=== PATIENT | female | born 1970 | race Caucasian/White ===

== ENCOUNTER → 2016-07-21 | Outpatient (CLI) | payer OTHER | LOC: RAD 09:18 | DX: M54.6 Pain in thoracic spine (principal) | CPT/HCPCS: 72072 ==

== ENCOUNTER 2016-08-28 18:45 | Emergency (ER) | payer OTHER ==
[2016-08-28 19:38] LABS: HEMOGLOBIN 14.6 gm/dl (12.3-15.3); RED BLOOD COUNT 4.57 M/UL (4.00-5.10); WHITE BLOOD COUNT 7.3 K/UL (4.5-11.0)
[2016-08-28 19:59] LABS: BUN/CREATININE RATIO 20 (0-10)
== END 2016-08-28 23:44 | disposition home or self-care (01) ==
LOC: ER1 18:45
PROVIDERS: Emergency Medicine
DX: J20.9 Acute bronchitis, unspecified (principal); E11.9 Type 2 diabetes mellitus without complications; I10 Essential (primary) hypertension; E78.00 Pure hypercholesterolemia, unspecified; F17.200 Nicotine dependence, unspecified, uncomplicated
CPT/HCPCS: 36415; 71020; 80053; 81001; 83605; 83690; 83880; 84484; 85025; 87040; 87086; 93005; 94640; 94664; 96361; 96374; 99285; J2930

== ENCOUNTER → 2016-08-31 | Outpatient (CLI) | payer OTHER | LOC: RAD 15:40 | DX: J40 Bronchitis, not specified as acute or chronic (principal); E11.9 Type 2 diabetes mellitus without complications; I10 Essential (primary) hypertension; E78.5 Hyperlipidemia, unspecified; E78.1 Pure hyperglyceridemia; I83.91 Asymptomatic varicose veins of right lower extremity; B35.1 Tinea unguium | CPT/HCPCS: 71020 ==

== ENCOUNTER → 2020-12-28 | Outpatient (CLI) | payer MEDICARE, OTHER ==
[~2020-12-28] MED LIST: BACLOFEN20 MG PO; BASAGLAR K100 UNIT/1 SQ; CETIRIZINE HCL10 MG PO; ECOTRIN81 MG PO; ESTRADIOL1 EAC1 TD; GABAPENTIN800 MG PO; GLUCOPHAGE1000 MG PO; HUMALOG100 UNIT/3 SQ; IBUPROFEN600 MG PO; KLONOPIN TAB 00.5 MG PO; LIPITOR TAB 2020 MG PO; LISINOPRIL40 MG PO; LOVAZA1 GM PO; LUVOX TAB 100100 MG PO; NORCO 10-325 T1 EACH PO; PHENERGAN 25 MG25 M1 PO; PROTONIX40 MG PO; TENORMIN 50 MG50 MG PO; TRICOR145 MG PO; VENTOLIN HFA 66.7 GM INH; ZANTAC150 MG PO; ZOFRAN4 MG PO
== END ==
LOC: KOH-I 11-30 13:00
DX: G95.9 Disease of spinal cord, unspecified (principal); W19.XXXD Unspecified fall, subsequent encounter; Q07.00 Arnold-Chiari syndrome without spina bifida or hydrocephalus; K21.9 Gastro-esophageal reflux disease without esophagitis; I10 Essential (primary) hypertension; E78.5 Hyperlipidemia, unspecified; F17.210 Nicotine dependence, cigarettes, uncomplicated
CPT/HCPCS: 72141

== ENCOUNTER 2021-04-14 21:10 | Emergency (ER) | payer MEDICARE, OTHER ==
[2021-04-14 22:02] LABS: HEMOGLOBIN 16.9 gm/dl (12.3-15.3); RED BLOOD COUNT 5.46 M/UL (4.00-5.10); WHITE BLOOD COUNT 10.5 K/UL (4.5-11.0)
[2021-04-14 22:23] LABS: BUN/CREATININE RATIO 24 (0-10)
== END 2021-04-15 01:15 | disposition short-term general hospital (02) ==
LOC: ER1 21:10
PROVIDERS: Family Medicine
DX: S02.612A Fracture of condylar process of left mandible, initial encounter for closed fracture (principal); S02.611A Fracture of condylar process of right mandible, initial encounter for closed fracture; S03.01XA Dislocation of jaw, right side, initial encounter; S01.81XA Laceration without foreign body of other part of head, initial encounter; S01.511A Laceration without foreign body of lip, initial encounter; E11.65 Type 2 diabetes mellitus with hyperglycemia; M54.2 Cervicalgia; M54.9 Dorsalgia, unspecified; Z23 Encounter for immunization; G89.29 Other chronic pain; Z20.822 Contact with and (suspected) exposure to COVID-19; F11.20 Opioid dependence, uncomplicated; I10 Essential (primary) hypertension; Z79.4 Long term (current) use of insulin; Y92.009 Unspecified place in unspecified non-institutional (private) residence as the place of occurrence of the external cause; W01.0XXA Fall on same level from slipping, tripping and stumbling without subsequent striking against object, initial encounter
CPT/HCPCS: 12011; 70450; 70486; 71260; 72125; 80053; 82550; 82553; 83874; 84484; 85025; 90471; 90715; 93005; 96374; 96375; 96376; 99285; J2270; J2405; Q9967; U0002

== ENCOUNTER 2021-07-09 22:23 | Inpatient (IN) | payer MEDICARE, OTHER ==
[~2021-07-09] VITALS: Ht 175.3 cm; Wt 81.6 kg
[~2021-07-09 22:23] MED LIST changes: -ESTRADIOL1 EAC1 TD; +ESTRADIOL1 EACH TD; -LUVOX TAB 100100 MG PO
[2021-07-10 00:42] LABS: HEMOGLOBIN 15.9 gm/dl (12.3-15.3); RED BLOOD COUNT 5.05 M/UL (4.00-5.10); WHITE BLOOD COUNT 10.2 K/UL (4.5-11.0)
[2021-07-10 01:09] LABS: BUN/CREATININE RATIO 34 (0-10)
[2021-07-10] MEDS ORDERED: HUMALOG100 UNIT/3 SC (08:48)
[2021-07-10] MEDS ORDERED: TRESIBA FL100 UNIT/1 SQ (08:49)
[2021-07-10] MEDS ORDERED: PERCOCET 5/325 T1 EA PO (08:49)
[2021-07-10] MEDS ORDERED: XANAX0.5 MG PO (08:51)
[2021-07-10] MEDS ORDERED: IBU800 MG PO (08:51)
[2021-07-10] MEDS ORDERED: MINIPRESS CAP 11 MG PO (08:53)
[2021-07-10] MEDS ORDERED: TIZANIDINE HCL4 MG PO (08:54)
[2021-07-10] MEDS ORDERED: LUVOX TAB 100100 MG PO (12:30)
[2021-07-10] MEDS ORDERED: CRESTOR40 MG PO (12:34)
[2021-07-10] MEDS ORDERED: FLONASE 0.05% N16 GM (12:35)
[2021-07-10] MEDS ORDERED: VASCEPA1 GM PO (12:35)
[2021-07-10] MEDS ORDERED: PROGESTERONE200 MG PO (12:36)
[2021-07-10] MEDS ORDERED: LIDOCAINE1 EAC1 TP (12:36)
[2021-07-11 03:15] LABS: HEMOGLOBIN 15.2 gm/dl (12.3-15.3); RED BLOOD COUNT 4.94 M/UL (4.00-5.10)
[2021-07-11 03:21] LABS: WHITE BLOOD COUNT 6.7 K/UL (4.5-11.0)
[2021-07-11 04:02] LABS: BUN/CREATININE RATIO 42 (0-10)
[2021-07-12 08:58] LABS: WHITE BLOOD COUNT 7.9 K/UL (4.5-11.0)
[2021-07-12 09:05] LABS: RED BLOOD COUNT 5.46 M/UL (4.00-5.10)
[2021-07-12 09:30] LABS: BUN/CREATININE RATIO 29 (0-10)
[2021-07-13 06:44] LABS: HEMOGLOBIN 17.4 gm/dl (12.3-15.3); RED BLOOD COUNT 5.52 M/UL (4.00-5.10); WHITE BLOOD COUNT 9.8 K/UL (4.5-11.0)
[2021-07-13 07:24] LABS: BUN/CREATININE RATIO 40 (0-10)
[2021-07-13] MEDS ORDERED: LEVOFLOXACIN500 MG PO (08:15)
[2021-07-13] MEDS ORDERED: AMLODIPINE BESYL5 MG PO (08:15)
--- NOTE | 2021-07-13 11:09 | NUR ---
URINE CULTURE ALREADY COMPLETE, PATIENT'S BLOOD PRESSURE 161/82 SO WILL D/C PER DR STILL'S REQUEST TO COMPLETE D/C ONCE SBP LESS THAN 170.
--- NOTE | 2021-07-13 14:55 | NUR ---
REPORT GIVEN TO BENNY WEI AT [facility].
== END 2021-07-13 13:20 | disposition home health service (06) | DRG 690 ==
LOC: ER1 22:23 → MED SURG 4 07-10 05:51 → CDU 07-10 05:51 → PROG CARE 07-10 05:51 → CDU 07-10 05:51 → PROG CARE 07-10 08:33 → MED SURG 4 07-11 23:35
PROVIDERS: Internal Medicine; Physician Assistant Medical; ADMIT Internal Medicine
PROC: B24BZZZ Ultrasonography of Heart with Aorta (ICD-10-PCS; principal; 2021-07-11)
DX: N39.0 Urinary tract infection, site not specified (principal); I95.1 Orthostatic hypotension; R29.6 Repeated falls; E78.5 Hyperlipidemia, unspecified; Z20.822 Contact with and (suspected) exposure to COVID-19; I10 Essential (primary) hypertension; I08.1 Rheumatic disorders of both mitral and tricuspid valves; I27.20 Pulmonary hypertension, unspecified; G89.29 Other chronic pain; I11.0 Hypertensive heart disease with heart failure; F41.9 Anxiety disorder, unspecified; J44.9 Chronic obstructive pulmonary disease, unspecified; D69.6 Thrombocytopenia, unspecified; E11.9 Type 2 diabetes mellitus without complications; Z79.4 Long term (current) use of insulin; Z98.890 Other specified postprocedural states
CPT/HCPCS: ECHO; 36415; 70450; 71045; 80048; 80053; 81001; 82533; 82550; 82553; 82962; 83735; 84484; 85025; 85027; 93005; 93306; 94640; 94664; 94760; 96374; 96375; 97116-GP-CQ; 97162; 97165; 97530; 99285; G0378; J0360; J0696; J1650; J2405; U0002

== ENCOUNTER 2021-07-20 17:12 | Emergency (ER) | payer MEDICARE, OTHER ==
[~2021-07-20 17:12] MED LIST changes: +AMLODIPINE BESYL5 MG PO; +CRESTOR40 MG PO; +FLONASE 0.05% N16 GM; +HUMALOG100 UNIT/3 SC; +IBU800 MG PO; +LEVOFLOXACIN500 MG PO; +LIDOCAINE1 EAC1 TP; +LUVOX TAB 100100 MG PO; +MINIPRESS CAP 11 MG PO; +PERCOCET 5/325 T1 EA PO; +PROGESTERONE200 MG PO; +TIZANIDINE HCL4 MG PO; +TRESIBA FL100 UNIT/1 SQ; +VASCEPA1 GM PO; +XANAX0.5 MG PO
[2021-07-20 17:57] LABS: HEMOGLOBIN 16.7 gm/dl (12.3-15.3); RED BLOOD COUNT 5.26 M/UL (4.00-5.10); WHITE BLOOD COUNT 9.8 K/UL (4.5-11.0)
[2021-07-20 18:17] LABS: BUN/CREATININE RATIO 43 (0-10)
[2021-07-20] MEDS ORDERED: CYCLOBENZAPRINE10 MG PO (20:28)
== END 2021-07-20 20:39 | disposition home or self-care (01) ==
LOC: ER1 17:12
PROVIDERS: Nurse Practitioner
DX: S32.018A Other fracture of first lumbar vertebra, initial encounter for closed fracture (principal); S32.028A Other fracture of second lumbar vertebra, initial encounter for closed fracture; M25.551 Pain in right hip; E11.9 Type 2 diabetes mellitus without complications; J44.9 Chronic obstructive pulmonary disease, unspecified; I10 Essential (primary) hypertension; F17.210 Nicotine dependence, cigarettes, uncomplicated; Z79.84 Long term (current) use of oral hypoglycemic drugs; Z79.4 Long term (current) use of insulin; W01.0XXA Fall on same level from slipping, tripping and stumbling without subsequent striking against object, initial encounter; Y92.009 Unspecified place in unspecified non-institutional (private) residence as the place of occurrence of the external cause
CPT/HCPCS: 70450; 71045; 72125; 72131; 73502; 80053; 80307; 81001; 82550; 82553; 84439; 84443; 84484; 85025; 93005; 99284; J2270; J2405; Q9967

== ENCOUNTER 2021-08-12 01:50 | Inpatient (IN) | payer MEDICARE, OTHER ==
[~2021-08-12] VITALS: Ht 172.7 cm; Wt 78.0 kg
[~2021-08-12 01:50] MED LIST changes: +CYCLOBENZAPRINE10 MG PO; -HUMALOG100 UNIT/3 SC; +NOVOLOG FL100 UNIT/1 SQ; -XANAX0.5 MG PO; +XANAX1 MG PO
[2021-08-12 02:50] LABS: HEMOGLOBIN 15.3 gm/dl (12.3-15.3); RED BLOOD COUNT 4.77 M/UL (4.00-5.10); WHITE BLOOD COUNT 11.3 K/UL (4.5-11.0)
[2021-08-12 03:13] LABS: BUN/CREATININE RATIO 24 (0-10)
[2021-08-12] MEDS ORDERED: IBUPROFEN800 MG PO (10:02)
[2021-08-12] MEDS ORDERED: TRANSDERM-SCOP1 EACH TOP (10:03)
[2021-08-12] MEDS ORDERED: PERCOCET 10-321 EACH PO (10:04)
[2021-08-12] MEDS ORDERED: BACLOFEN20 MG PO (10:04)
[2021-08-12] MEDS ORDERED: AMLODIPINE BESYL5 MG PO (10:05)
[2021-08-12] MEDS ORDERED: MIRALAX17 GM PO (10:06)
[2021-08-13 03:23] LABS: HEMOGLOBIN 15.5 gm/dl (12.3-15.3); RED BLOOD COUNT 4.97 M/UL (4.00-5.10)
[2021-08-13 03:42] LABS: WHITE BLOOD COUNT 5.9 K/UL (4.5-11.0)
[2021-08-13 04:36] LABS: BUN/CREATININE RATIO 27 (0-10)
[2021-08-13] MEDS ORDERED: TOPROL XL25 MG PO (14:23)
== END 2021-08-13 14:48 | disposition home or self-care (01) | DRG 312 ==
LOC: ER1 01:50 → CDU 05:36 → PROG CARE 10:00
PROVIDERS: Student in an Organized Health Care Education/Training Program; ADMIT Internal Medicine
DX: I95.2 Hypotension due to drugs (principal); E87.2 Acidosis; G89.4 Chronic pain syndrome; Z20.822 Contact with and (suspected) exposure to COVID-19; E11.42 Type 2 diabetes mellitus with diabetic polyneuropathy; J44.9 Chronic obstructive pulmonary disease, unspecified; F17.210 Nicotine dependence, cigarettes, uncomplicated; E78.5 Hyperlipidemia, unspecified; F41.9 Anxiety disorder, unspecified; I10 Essential (primary) hypertension; Z79.01 Long term (current) use of anticoagulants; Z79.82 Long term (current) use of aspirin; Z98.891 History of uterine scar from previous surgery; Z83.3 Family history of diabetes mellitus; Z82.49 Family history of ischemic heart disease and other diseases of the circulatory system; Z90.49 Acquired absence of other specified parts of digestive tract
CPT/HCPCS: 70450; 71045; 80053; 81001; 82550; 82553; 82962; 83036; 83605; 83735; 84484; 85025; 87040; 87086; 93005; 96361; 96374; 96375; 97161; 99285; J1885; J2405

== ENCOUNTER 2021-09-24 16:36 | Emergency (ER) | payer MEDICARE, OTHER ==
[~2021-09-24 16:36] MED LIST changes: +IBUPROFEN800 MG PO; +MIRALAX17 GM PO; +PERCOCET 10-321 EACH PO; +TOPROL XL25 MG PO; +TRANSDERM-SCOP1 EACH TOP
[2021-09-24] MEDS ORDERED: BACLOFEN20 MG PO (17:29)
[2021-09-24] MEDS ORDERED: CETIRIZINE HCL10 MG PO (17:30)
[2021-09-24] MEDS ORDERED: NALOXONE HCL4 MG (17:30)
[2021-09-24] MEDS ORDERED: LIDOCAINE PAIN1 EACH TP (17:30)
[2021-09-24] MEDS ORDERED: PROGESTERONE200 MG PO (17:31)
[2021-09-24] MEDS ORDERED: VASCEPA1 GM PO (17:31)
[2021-09-24] MEDS ORDERED: PROMETHAZINE HC25 M1 PO (17:31)
[2021-09-24 17:45] LABS: HEMOGLOBIN 15.8 gm/dl (12.3-15.3); RED BLOOD COUNT 4.92 M/UL (4.00-5.10); WHITE BLOOD COUNT 9.4 K/UL (4.5-11.0)
[2021-09-24 18:08] LABS: BUN/CREATININE RATIO 31 (0-10)
[2021-09-24] MEDS ORDERED: TRESIBA FL100 UNIT/1 SQ (18:28)
[2021-09-24] MEDS ORDERED: ADMELOG100 UNIT/1 SQ (18:28)
== END 2021-09-25 13:18 | disposition other institution (70) ==
LOC: ER1 16:36
PROVIDERS: Family Medicine
DX: T42.6X1A Poisoning by other antiepileptic and sedative-hypnotic drugs, accidental (unintentional), initial encounter (principal); E11.9 Type 2 diabetes mellitus without complications; F17.210 Nicotine dependence, cigarettes, uncomplicated; Z79.899 Other long term (current) drug therapy
CPT/HCPCS: 70450; 71045; 80053; 80307; 81001; 82550; 82553; 83605; 84484; 85025; 85610; 87040; 96360; 99285